=== PATIENT | male | born 1960 | race Caucasian/White ===

== ENCOUNTER 2023-05-17 22:23 | Emergency (ER) | payer OTHER, SELFPAY ==
[2023-05-17 22:24] VITALS: BP 180/93; PULSE 83; RESP 20; TEMP 37; O2SAT 96; BMI 28.8
[2023-05-17 22:42] LABS: Microscopic, Urine URINE MICROSCOPIC (MICROSCOPIC)
[2023-05-17 22:45] LABS: Appearance,Urine CLOUDY (Clear); Blood, Urine 3+ (Negative); Color,Urine RED (Yellow); Glucose,Urine (UA) 3+ (Negative); Ketones,Urine 1+ (Negative); Leukocyte Esterase,Urine TRACE (Negative); Nitrate,Urine POSITIVE (Negative); Protein,Urine 3+ (Negative); Specific Gravity, Urine 1.025 (1.005-1.030)
[2023-05-17 22:48] LABS: Bilirubin,Urine 2+ (Negative)
[2023-05-17 22:52] LABS: Basophils # 0.1 K/mm3 (0-0.2); Basophils % 0.5 % (0.1-2.0); Eosinophils # 0.5 K/mm3 (0.0-0.4); Eosinophils % 4.1 % (0.1-12.0); Hematocrit 40.2 % (42.0-52.0); Hemoglobin 13.4 g/dL (14.1-18.0); Lymphocytes % 17.7 % (10-50); Mean Corpuscular HGB Conc 33.3 g/dL (31.8-35.4); Mean Corpuscular Hemoglobin 31.6 pg (27.0-31.2); Mean Platelet Volume 8.1 fl (7.4-10.4); Monocytes # 0.7 K/mm3 (0.1-1.0); Neutrophils # 7.9 K/mm3 (1.8-7.8); Neutrophils % 71.7 % (37.0-80.0); Platelet Count 217 K/mm3 (142-424); Red Blood Count 4.23 M/mm3 (4.60-6.20); Red Cell Distribution Width 12.9 % (11.5-17.5)
--- NOTE | 2023-05-17 22:52 | CT_ITS ---
PROCEDURE INFORMATION: Exam: CT Abdomen And Pelvis With Contrast Exam date and time: 05/17/2023 11:29 PM Age: 62 years old Clinical indication: Abdominal pain; Additional info: Recent turbt, low abd pain TECHNIQUE: Imaging protocol: Computed tomography of the abdomen and pelvis with contrast. Radiation optimization: All CT scans at this facility use at least one of these dose optimization techniques: automated exposure control; mA and/or kV adjustment per patient size (includes targeted exams where dose is matched to clinical indication); or iterative reconstruction. Contrast material: ISOVUE; Contrast volume: 75 ml; Contrast route: IV; REPORTING DATA: Count of CT and Cardiac NM exams in prior 12 months: This patient has received 0 known CTs and 0 known cardiac nuclear medicine studies in the 12 months prior to the current study. COMPARISON: No relevant prior studies available. FINDINGS: Heart: Lipomatous hypertrophy of the interatrial septum. Liver: Normal. No mass. Gallbladder and bile ducts: Normal. No calcified stones. No ductal dilation. Pancreas: Fatty infiltrative changes of the pancreas. Spleen: Punctate splenic calcifications. Adrenal glands: Normal. No mass. Kidneys and ureters: Double-J left ureteral stent with the proximal aspect located within the left kidney upper pole in the distal aspect terminating within the urinary bladder. No identifiable stones. Mild left pelviectasis. Hbgd-bo-cjwpteql left periureteral and peripelvic inflammatory fat stranding. Stomach and bowel: Moderate to severe colonic diverticulosis without evidence of acute diverticulitis. Appendix: No evidence of appendicitis. Intraperitoneal space: Unremarkable. No free air. No significant fluid collection. Vasculature: Unremarkable. No abdominal aortic aneurysm. Lymph nodes: Unremarkable. No enlarged lymph nodes. Urinary bladder: Decompressed urinary bladder with a Quinones catheter in appropriate position. Moderate diffuse urinary bladder wall thickening. Reproductive: Unremarkable as visualized. Bones/joints: No acute osseous findings. Degenerative changes of the spine and hips. Soft tissues: Bilateral fat containing inguinal hernias. IMPRESSION: Double-J left ureteral stent and Quinones catheter in place. Moderate circumferential urinary bladder wall thickening and [id number] left periureteral/peripelvic inflammatory fat stranding, findings which may represent urinary tract infection. Mild left pelviectasis, query ureteral stent dysfunction.
[2023-05-17 22:57] LABS: Chloride 98 mmol/L (98-107)
[2023-05-17 22:58] LABS: Potassium 4.5 mmoL/L (3.5-5.1); Sodium 132 mmol/L (136-145)
[2023-05-17 23:00] LABS: Alanine Aminotransferase 30 U/L (12-78); Alkaline Phosphatase 87 U/L (38-126); Anion Gap 13.5 mEq/L (5-15); Aspartate Amino Transferase 28 U/L (17-59); Bilirubin,Total 0.4 mg/dl (0.2-1.3); Blood Urea Nitrogen 17 mg/dl (9-20); Carbon Dioxide 25 mmol/L (22.0-30.0); Creatinine Clearance Estimated 100 mL/min (50-200); Estimated Glomerular Filt Rate 85 ml/min (>60); GFR (African American) 103 ML/MIN (>60)
[2023-05-17 23:01] LABS: Albumin Level 3.9 g/dl (3.5-5.0); Albumin/Globulin Ratio 1.3 (1.1-1.8); Calcium 9.6 mg/dl (8.4-10.2); Glucose 329 mg/dl (74-100); Lipase 95 U/L (23-300); Total Protein,Serum 6.9 g/dl (6.3-8.2)
[2023-05-17 23:02] LABS: Lactic Acid 1.3 mmol/L (0.7-2.1)
--- NOTE | 2023-05-17 23:13 | [facility].EDGENADL ---
Discharge Plan Disposition Patient Disposition: Home, Self-Care Condition: Good Referrals Follow up/Referrals: Provider,MD Manuel [Primary Care Provider] - See instructions Activity Restrictions/Add. Instructions Additional Instructions/Restrictions: You were evaluated in the emergency department today for abdominal pain. We did not identify signs of infection from your recent surgery. We did identify pelviectasis of the kidney which does not require acute intervention at this time, however you do need to mention this at your urology follow-up. Go to your scheduled appointment, do not miss it. Also make a follow-up appointment with your primary care physician for Friday or Friday for reevaluation. Continue taking all home medications as previously prescribed. Return to the emergency department with other new or worsening symptoms. Clinical Impressions Clinical Impression: Bladder spasm Instructions Patient Instructions: DI for Acute Abdominal Pain Discharge ED Provider: Ernie Schuler General Adult HPI <Bharat Guy MD - Last Filed: 05/17/23 23:17> General Chief complaint: Abdominal Pain Stated complaint: abd pain Time Seen by Provider: 05/17/23 22:42 Mode of Arrival: Ambulatory Source of Information: Patient Limitations: No Limitations Description of Symptoms (Recalled from ER Triage Doc. by RN): Patient reports had TURP procedure on 05/15/23 started cramping this evening located in lower left quad. No fever or vomiting. Patient has not had a BM since yesterday. History of Present Illness HPI narrative: Patient is a 62-year-old male with past medical history of bladder tumor status post TURBT on with indwelling Quinones who presents emergency department for evaluation of lower abdominal pain. Onset was acute, severe which has since lessened to moderate, occurring earlier this evening. Symptoms are refractory to his phenazopyridine at home. Denies chest pain, other acute complaints at this time. Related Data Allergies Allergy/AdvReac Type Severity Reaction Status Date / Time [id number] Reductase Allergy Verified 05/17/23 22:42 Inhibitor PFSH <Bharat Guy MD - Last Filed: 05/17/23 23:17> PFS Disclaimer: The information contained in this section may have been updated after the patient was seen, as this information can be updated by other users. Social History (Updated 05/17/23 @ 23:17 by Bharat Guy MD) Smoking Status: Never smoker alcohol intake: never current occupational status: other Travel in the last 8 weeks: None <Bharat Guy MD - Last Filed: 05/17/23 23:17> ROS Obtained: Yes Systems reviewed as appropriate & no additional complaints except as documented Physical Exam <Bharat Guy MD - Last Filed: 05/17/23 23:17> General General appearance: alert and in no apparent distress Head Head exam: atraumatic and normocephalic Eye Eye exam: Present PERRL and EOMI ENT ENT exam: Present mucous membranes moist Neck Neck exam: Present normal inspection Chest Chest inspection: Present normal inspection and symmetric chest wall rise Respiratory Respiratory exam: Present normal lung sounds bilaterally; Absent respiratory distress Cardiovascular Cardiovascular exam: Present regular rate and normal rhythm Abdominal Exam Abdominal exam: Present soft and tenderness (Mild, suprapubic) Extremities Exam Extremities exam: Present normal inspection Neurological Exam Neurological exam: Present alert Psychiatric Psychiatric exam: Present normal affect Skin Skin exam: Present warm and dry Medical Decision Making <Bharat Guy MD - Last Filed: 05/17/23 23:17> Dipesh Inquiry Pt receiving controlled substance: No Vital Signs: 05/17/23 22:24 05/17/23 23:33 05/18/23 00:00 Temperature 98.6 F Temperature Source Oral Pulse Rate 88 Pulse Rate [Left] 83 Respiratory Rate 20 Blood Pressure 146/83 H 135/76 Blood Pressure [Right
--- NOTE | 2023-05-17 23:15 | PC.NURSE ---
Rounded on pt. No needs voiced at this time. Call light within reach.
[2023-05-17 23:18] LABS: Bacteria,Urine Trace /lpf; RBC,Urine TNTC #/hpf (0-3); Squamous Epithelial Cell,Urine Occasional #/hpf (0-5); WBC,Urine Occasional #/hpf (0-3)
[2023-05-17 23:33] VITALS: BP 146/83; PULSE 88; O2SAT 92
[2023-05-18] VITALS: BP 135/76; O2SAT 94
[2023-05-18 01:22] VITALS: BP 124/78; PULSE 81; RESP 16; TEMP 36.8; O2SAT 95
== END 2023-05-18 01:24 | disposition home or self-care (01) ==
PROVIDERS: Emergency Medicine; Emergency Provider Emergency Medicine
DX: N99.89 Other postprocedural complications and disorders of genitourinary system (principal); N32.89 Other specified disorders of bladder; R10.30 Lower abdominal pain, unspecified; Y83.6 Removal of other organ (partial) (total) as the cause of abnormal reaction of the patient, or of later complication, without mention of misadventure at the time of the procedure
CPT/HCPCS: 74177; 80053; 81001; 83605; 83690; 85025; 96374; 96375; 99285; J2405; Q9967

== ENCOUNTER 2024-11-01 12:55 | Emergency (ER) | payer OTHER, SELFPAY ==
[2024-11-01] VITALS (10 sets, daily range): BP systolic 134–167; BP diastolic 70–94; PULSE 80–123; RESP 13–22; TEMP 36.7–37.3; O2SAT 94–98; BMI 26.3
--- NOTE | 2024-11-01 12:53 | ECG_ITS ---
APPROVED REPORT Exam: Resting ECG HR:107 bpm ECG Measurements Heart Rate 107 AXES QRSd 87 QRS 60 QT 300 T 73 QTc 363 Conclusion ATRIAL FIBRILLATION WITH RAPID VENTRICULAR RESPONSE POSSIBLE RIGHT VENTRICULAR CONDUCTION DELAY [RSR (QR) IN V1/V2] ABNORMAL RHYTHM ECG UNCONFIRMED REPORT Electronically signed by : HERNAN ADEN, 11/02/2024 06:49:13
--- NOTE | 2024-11-01 13:03 | XR_ITS ---
FINAL REPORT TECHNIQUE: Chest PA & Lateral CLINICAL HISTORY: Chest pain COMPARISON: None FINDINGS: 2 views of the chest were performed. The heart size is normal. The mediastinum is within normal limits. There are some ill-defined opacities in both lungs, most evident in the left upper lobe, which may be related to mild multifocal pneumonia. There are no pleural effusions. There is no pneumothorax. The bony thorax appears intact. IMPRESSION: Multifocal pneumonia. Recommend follow-up radiographs. Reviewed, Interpreted and Dictated by Deandre Taylor MD Transcribed by Xuan Hearn Authenticated and [facility]
--- NOTE | 2024-11-01 13:03 | [facility]H.EDCP ---
Discharge Plan Disposition Patient Disposition: Home, Self-Care Condition: Good Prescriptions Prescriptions: New amoxicillin-pot clavulanate 875-125 mg tablet 1 tab PO BID Qty: 20 0RF azithromycin 250 mg tablet 250 mg PO DAILY 6 Days Qty: 6 0RF Rx Instructions: start on day 2 of therapy No Action glipizide 10 mg Tablet 10 mg PO DAILY metformin 500 mg Tablet 500 mg PO BID rosuvastatin 5 mg Tablet 5 mg PO DAILY polyethylene glycol 3350 [Miralax] 17 gram Powder In Packet 17 g PO NEEDED PRN (Reason: Constipation) nifedipine 90 mg Tablet Extended Release 90 mg PO DAILY acetaminophen [Tylenol] 325 mg Tablet 325 mg PO NEEDED PRN (Reason: Pain) sennosides 8.6 mg Tablet 8.6 mg PO BID Referrals Follow up/Referrals: Provider,Referral, MD [Primary Care Provider] - See instructions Activity Restrictions/Add. Instructions Additional Instructions/Restrictions: Please follow-up with your oncology team at the [facility] regarding your visit today. I believe they are aware of the known masses in your chest however they may want the images. I have called in a prescription as we discussed to cover for possible community-acquired pneumonia. Please check the patient portal for the results of your respiratory panel however as that is more likely a viral process. If you have continued or worsening symptoms follow-up with your PCP or return to the ER as needed. Clinical Impressions Clinical Impression: Lung mass Chest pain Qualifiers: Chest pain type: unspecified Qualified Code(s): R07.9 - Chest pain, unspecified Community acquired pneumonia Qualifiers: Laterality: unspecified laterality Qualified Code(s): J18.9 - Pneumonia, unspecified organism Print Language Print Language: Uzbek Discharge ED Provider: Yang Thompson HPI <ADITYA Adkins - Last Filed: 11/01/24 22:36> General Chief Complaint: Chest Pain Stated Complaint: CP Time Seen by Provider: 11/01/24 13:03 History of Present Illness HPI narrative: Patient presents for evaluation of left-sided chest pain. Patient states that when he woke up this morning he began having left-sided chest pain. It has been continuous with waxing and waning intensity but never present. He denies any shortness of breath fever chills hemoptysis hematochezia melena nausea vomit diarrhea. Patient does have known bladder cancer and has a urostomy on the right side as well as recently undergoing chemotherapy for the first time around the last week of September. [facility] and all of his care is normally given at the [facility]. Related Data Home Medications ?Medication ?Instructions ?Recorded ?Confirmed acetaminophen 325 mg tablet 325 mg PO NEEDED PRN Pain 11/01/24 11/01/24 (Tylenol) glipizide 10 mg tablet 10 mg PO DAILY 11/01/24 11/01/24 metformin 500 mg tablet 500 mg PO BID 11/01/24 11/01/24 nifedipine 90 mg tablet,extended 90 mg PO DAILY 11/01/24 11/01/24 release polyethylene glycol 3350 17 gram 17 g PO NEEDED PRN Constipation 11/01/24 11/01/24 oral powder packet (Miralax) rosuvastatin 5 mg tablet 5 mg PO DAILY 11/01/24 11/01/24 sennosides 8.6 mg tablet 8.6 mg PO BID 11/01/24 11/01/24 Previous Rx's ?Medication ?Instructions ?Recorded amoxicillin 875 mg-potassium 1 tab PO BID #20 tabs 11/01/24 clavulanate 125 mg tablet azithromycin 250 mg tablet 250 mg PO DAILY 6 days #6 tabs 11/01/24 Allergies Allergy/AdvReac Type Severity Reaction Status Date / Time [id number]-[id number] Reductase Allergy Anaphylaxis Verified 11/01/24 13:07 Inhibitor [facility] <ADITYA Adkins - Last Filed: 11/01/24 22:36> [facility] Disclaimer: The information contained in this section may have been updated after the patient was seen, as this information can be updated by other users. Medical History (Updated 11/01/24 @ 16:40 by ADITYA Adkins) Breast cancer Social History (Updated 11/01/24 @ 13:06 by Carol Ann Tamez RN) Smoking Status: Never smoker alcohol intake: never current occupational status: other Travel in the last 8 weeks: None Have you lived/traveled outside US in past 30 days?: No Contact w/someone who lives/traveled outside US past 30 days?: No Exposure to someone with infectious disease in past 14 days?: No Do you have a fever (greater than 100.4 F or 38 C)?: No Have you tested positive for COVID-19: No Exposed to someone with COVID-19 in past 14 days?: No Do you have a sore throat?: No Do you have a cough?: No Do you have any weakness?: No Do you have any diarrhea?: No Are you experiencing any unusual bleeding?: No Do you have any muscle aches/pain?: No Do you have any abdominal pain?: No Are you experiencing loss of taste or smell?: No <ADITYA Adkins - Last Filed: 11/01/24 22:36> ROS Obtained: Yes Systems reviewed as appropriate & no additional complaints except as documented Physical Exam <ADITYA Adkins - Last Filed: 11/01/24 22:36> General General appearance: alert and in no apparent distress Respiratory Respiratory exam: Present normal lung sounds bilaterally Cardiovascular Cardiovascular exam: Present tachycardia Neurological Exam Neurological exam: Present alert and oriented X3 HEART Score <ADITYA Adkins - Last Filed: 11/01/24 22:36> HEART Score HEART Score assessment performed?: Yes History (anamnesis): Slightly suspicious ECG: Non-specific disturbance Age: >65 years Risk factors: 3 or more risk factors Troponin: </= normal limit HEART Score: 5 <Yang Thompson MD - Last Filed: 11/03/24 15:13> HEART Score HEART Score: 5 Critical Care <ADITYA Adkins - Last Filed: 11/01/24 22:36> Critical Care Time Critical Care Time: No Medical Decision Making <ADITYA Adkins - Last Filed: 11/01/24 22:36> Medical Records Medical records reviewed: Yes I reviewed the patient's medical records. Dipesh Inquiry Pt receiving controlled substance: No Vital Signs Vital Signs: 11/01/24 12:55 11/01/24 13:01 11/01/24 13:30 Temperature 99.2 F Temperature Source Oral Pulse Rate 94 H 95 H Pulse Rate [Right] 123 H Respiratory Rate 18 16 16 Blood Pressure 161/87 H 159/79 H Blood Pressure [Right Arm] 167/82 H Blood Pressure Mean [Right Arm] 110 Blood Pressure Source Blood Pressure Source [Right Arm] Automatic Cuff Blood Pressure Position 02 Sat by Pulse Oximetry 98 95 96 Oxygen Delivery Method Room Air Room Air Room Air 11/01/24 14:01 11/01/24 14:30 11/01/24 15:01 Temperature Temperature Source Pulse Rate 96 H 88 87 Pulse Rate [Right] Respiratory Rate 22 13 16 Blood Pressure 145/78 H 135/86 157/86 H Blood Pressure [Right Arm] Blood Pressure Mean [Right Arm] Blood Pressure Source Blood Pressure Source [Right Arm] Blood Pressure Position 02 Sat by Pulse Oximetry 94 L 95 97 Oxygen Delivery Method Room Air Room Air Room Air 11/01/24 15:30 11/01/24 16:00 11/01/24 16:30 Temperature Temperature Source Pulse Rate 85 80 95 H Pulse Rate [Right] Respiratory Rate 18 13 21 Blood Pressure 153/94 H 134/70 151/86 H Blood Pressure [Right Arm] Blood Pressure Mean [Right Arm] Blood Pressure Source Blood Pressure Source [Right Arm] Blood Pressure Position 02 Sat by Pulse Oximetry 97 94 L 96 Oxygen Delivery Method Room Air Room Air Room Air 11/01/24 17:21 Temperature 98.1 F Temperature Source Oral Pulse Rate 93 H Pulse Rate [Right] Respiratory Rate 17 Blood Pressure 145/77 H Blood Pressure [Right Arm] Blood Pressure Mean [Right Arm] Blood Pressure Source Automatic Cuff Blood Pressure Source [Right Arm] Blood Pressure Position Sitting 02 Sat by Pulse Oximetry Oxygen Delivery Method Room Air Lab Data Lab results reviewed: Yes I reviewed the patient's lab results. Labs: Lab Results 11/01/24 12:59: WBC 12.0 H, RBC 3.50 L, Hgb 9.9 L, Hct 30.8 L, MCV 88.0, MCH 28.3, MCHC 32.1, RDW 14.3, Plt Count 408, MPV 9.5, Neut % (Auto) 82.9 H, Lymph % (Auto) 7.5 L, [place] % (Auto) 8.6, Eos % (Auto) 0.2, Baso % (Auto) 0.3, Neut # (Auto) 9.9 H, Lymph # (Auto) 0.9, [place] # (Auto) 1.0, Eos # (Auto) 0.0, Baso # (Auto) 0.0, PT 10.2, INR 0.92, Sodium 133 L, Potassium 4.5, Chloride 96 L, Carbon Dioxide 26, Anion Gap 15.5 H, BUN 20, Creatinine 1.00, Estimated Creat Clear 89, Estimated GFR 75, Est GFR ( Amer) 91, Glucose 151 H, Calcium 9.8, Magnesium 1.7, Total Bilirubin 0.4, AST 30, ALT 25, Alkaline Phosphatase 153 H, Troponin I 0.02, NT-Pro-B Natriuret Pep 986 H, Total Protein 7.7, Albumin 4.1, Globulin 3.6 H, Albumin/Globulin Ratio 1.1, Lipase 28, Procalcitonin 0.389, SARS-CoV-2 (PCR) Not detected, Influenza Type A (PCR) Not detected, Influenza Type B (PCR) Not detected, RSV (PCR) Not detected, Rhinovirus (PCR) Not detected 11/01/24 13:05: VBG pH 7.36, VBG pCO2 41.2, VBG pO2 40.1 H, VBG HCO3 22.8 L, VBG Total CO2 24.0, VBG O2 Saturation 72.9 H, VBG Base Excess -2.7 L, VBG Lactic Acid 1.3 11/01/24 13:39: Urine Color Yellow, Urine Appearance Clear, Urine pH 6.0, Ur Specific [place] 1.020, Urine Protein 2+ A, Urine Glucose (UA) Negative, Urine Ketones Trace, Urine Blood 2+ A, Urine Nitrate Positive A, Urine Bilirubin Negative, Urine Urobilinogen 0.2, Ur Leukocyte Esterase 2+ A, Urine RBC 3-5, Urine WBC Tntc, Ur Squamous Epith Cells Occasional, Urine Bacteria 3+ 11/01/24 16:18: Troponin I 0.02 11/01/24 12:59 11/01/24 12:59 Response Orders (Tests/Meds): ED MEDICATIONS Discontinued Medications Generic Name Dose Route Start Last Admin Trade Name Ravi PRN Reason Stop Dose Admin Acetaminophen 1,000 mg 11/01/24 13:03 11/01/24 13:21 Acetaminophen 1,000mg/100ml Vial IV 11/01/24 13:04 1,000 mg ONCE ONE Administration Amoxicillin/Clavulanate Potassium 1 each 11/01/24 14:43 11/01/24 16:30 Amoxicillin/Clavulanate Potassium 875/125mg Tablet PO 11/01/24 14:44 1 each ONCE ONE Administration Azithromycin 500 mg 11/01/24 14:43 11/01/24 16:30 Azithromycin 250mg Tablet PO 11/01/24 14:44 500 mg ONCE ONE Administration Ketorolac Tromethamine 15 mg 11/01/24 13:03 11/01/24 13:20 Ketorolac 30mg/Ml Vial IV 11/01/24 13:04 15 mg ONCE ONE Administration ORDERS Category Date Time Status CT chest wo con Stat Cat Scan 11/01/24 14:47 Completed Chest XR 2 view (NOT portable) [XR chest 2V] Stat Exams 11/01/24 13:03 Completed BNP [NT Pro Brain Natriuretic Pep.] Stat Lab 11/01/24 12:59 Completed CBC w/Auto Diff [Complete Blood Count Auto Diff] Stat Lab 11/01/24 12:59 Completed CMP [Comprehensive Metabolic Panel] Stat Lab 11/01/24 12:59 Completed INR [Prothrombin Time INR] Stat Lab 11/01/24 12:59 Completed Lipase Stat Lab 11/01/24 12:59 Completed Magnesium Stat Lab 11/01/24 12:59 Completed Mini Respiratory Panel Stat Lab 11/01/24 12:59 Completed Procalcitonin Stat Lab 11/01/24 12:59 Completed Trop I [Troponin I] Stat Lab 11/01/24 12:59 Completed Troponin I Q3H Lab 11/01/24 16:18 Completed UA [Urinalysis and Microscopic] Stat Lab 11/01/24 13:39 Completed Urine Culture Stat Micro 11/01/24 13:39 Completed VBG [Venous Blood Gas] Stat RT 11/01/24 13:05 Completed MDM Narrative Medical Decision Narrative: In summary patient is a 64-year-old male who presents to the emergency department for evaluation of chest pain. Patient is initially normotensive at 167/82 but tachycardic at 123 with sinus tachycardia on the bedside monitor breathing 18 times a minute satting at 98% on room air upon arrival, afebrile at 99.2. Physical exam reveals normal breath sounds normal heart sounds no reproducible pain on palpation.. Differential diagnosis includes ACS versus pneumonia versus pleural effusion versus metastatic disease versus viral infection versus pancreatitis etc. Initial workup will be conducted with hematologic labs plain film chest x-ray twelve-lead EKG respiratory panel. Initial interventions include Toradol and Tylenol for now. Initial workup reviewed by me shows that his white count is 12 with hemoglobin hematocrit of 9 and 30.8 respectively with an absolute neutrophil count of 9.96 VBG shows a preserved pH of 7.36 and a VBG lactic acid 1.3. His NT proBNP is 986. The remainder of his hematologic labs are nonactionable and unremarkable including 2 negative troponins. His respiratory panel is negative for COVID and flu RSV and rhinovirus. Urinalysis insistent with possible infection however patient has urostomy tube and has no constitutional symptoms of pyelonephritis currently. My informal plain film chest x-ray shows several areas of what appear to be solid nodules but no discrete infiltrates. Thus I have ordered CT noncontrast to further characterize. My informal interpretation of that imaging shows that those are solid masses worrisome for malignancy given his known history of bladder cancer. Upon repeat evaluation patient actually felt better and had resolution of his chest pain since arrival. Given this patient is appropriate for discharge with prescription for community acquired pneumonia coverage with Augmentin and azithromycin which hopefully will least initially tamper any potential urinary tract infection until urine culture is completed. [facility] and let them know the findings of today. The nodules are apparently no but I have no comparison here thus will be important to ascertain any differences. Patient verbalized understanding and agreement. <Yang Thompson MD - Last Filed: 11/03/24 15:13> Vital Signs Vital Signs: 11/01/24 12:55 11/01/24 13:01 11/01/24 13:30 Temperature 99.2 F Temperature Source Oral Pulse Rate 94 H 95 H Pulse Rate [Right] 123 H Respiratory Rate 18 16 16 Blood Pressure 161/87 H 159/79 H Blood Pressure [Right Arm] 167/82 H Blood Pressure Mean [Right Arm] 110 Blood Pressure Source Blood Pressure Source [Right Arm] Automatic Cuff Blood Pressure Position 02 Sat by Pulse Oximetry 98 95 96 Oxygen Delivery Method Room Air Room Air Room Air 11/01/24 14:01 11/01/24 14:30 11/01/24 15:01 Temperature Temperature Source Pulse Rate 96 H 88 87 Pulse Rate [Right] Respiratory Rate 22 13 16 Blood Pressure 145/78 H 135/86 157/86 H Blood Pressure [Right Arm] Blood Pressure Mean [Right Arm] Blood Pressure Source Blood Pressure Source [Right Arm] Blood Pressure Position 02 Sat by Pulse Oximetry 94 L 95 97 Oxygen Delivery Method Room Air Room Air Room Air 11/01/24 15:30 11/01/24 16:00 11/01/24 16:30 Temperature Temperature Source Pulse Rate 85 80 95 H Pulse Rate [Right] Respiratory Rate 18 13 21 Blood Pressure 153/94 H 134/70 151/86 H Blood Pressure [Right Arm] Blood Pressure Mean [Right Arm] Blood Pressure Source Blood Pressure Source [Right Arm] Blood Pressure Position 02 Sat by Pulse Oximetry 97 94 L 96 Oxygen Delivery Method Room Air Room Air Room Air 11/01/24 17:21 Temperature 98.1 F Temperature Source Oral Pulse Rate 93 H Pulse Rate [Right] Respiratory Rate 17 Blood Pressure 145/77 H Blood Pressure [Right Arm] Blood Pressure Mean [Right Arm] Blood Pressure Source Automatic Cuff Blood Pressure Source [Right Arm] Blood Pressure Position Sitting 02 Sat by Pulse Oximetry Oxygen Delivery Method Room Air Lab Data Labs: Lab Results 11/01/24 12:59: WBC 12.0 H, RBC 3.50 L, Hgb 9.9 L, Hct 30.8 L, MCV 88.0, MCH 28.3, MCHC 32.1, RDW 14.3, Plt Count 408, MPV 9.5, Neut % (Auto) 82.9 H, Lymph % (Auto) 7.5 L, [place] % (Auto) 8.6, Eos % (Auto) 0.2, Baso % (Auto) 0.3, Neut # (Auto) 9.9 H, Lymph # (Auto) 0.9, [place] # (Auto) 1.0, Eos # (Auto) 0.0, Baso # (Auto) 0.0, PT 10.2, INR 0.92, Sodium 133 L, Potassium 4.5, Chloride 96 L, Carbon Dioxide 26, Anion Gap 15.5 H, BUN 20, Creatinine 1.00, Estimated Creat Clear 89, Estimated GFR 75, Est GFR ( Amer) 91, Glucose 151 H, Calcium 9.8, Magnesium 1.7, Total Bilirubin 0.4, AST 30, ALT 25, Alkaline Phosphatase 153 H, Troponin I 0.02, NT-Pro-B Natriuret Pep 986 H, Total Protein 7.7, Albumin 4.1, Globulin 3.6 H, Albumin/Globulin Ratio 1.1, Lipase 28, Procalcitonin 0.389, SARS-CoV-2 (PCR) Not detected, Influenza Type A (PCR) Not detected, Influenza Type B (PCR) Not detected, RSV (PCR) Not detected, Rhinovirus (PCR) Not detected 11/01/24 13:05: VBG pH 7.36, VBG pCO2 41.2, VBG pO2 40.1 H, VBG HCO3 22.8 L, VBG Total CO2 24.0, VBG O2 Saturation 72.9 H, VBG Base Excess -2.7 L, VBG Lactic Acid 1.3 11/01/24 13:39: Urine Color Yellow, Urine Appearance Clear, Urine pH 6.0, Ur Specific [place] 1.020, Urine Protein 2+ A, Urine Glucose (UA) Negative, Urine Ketones Trace, Urine Blood 2+ A, Urine Nitrate Positive A, Urine Bilirubin Negative, Urine Urobilinogen 0.2, Ur Leukocyte Esterase 2+ A, Urine RBC 3-5, Urine WBC Tntc, Ur Squamous Epith Cells Occasional, Urine Bacteria 3+ 11/01/24 16:18: Troponin I 0.02 Response Orders (Tests/Meds): ED MEDICATIONS Discontinued Medications Generic Name Dose Route Start Last Admin Trade Name Freq PRN Reason Stop Dose Admin Acetaminophen 1,000 mg 11/01/24 13:03 11/01/24 13:21 Acetaminophen 1,000mg/100ml Vial IV 11/01/24 13:04 1,000 mg ONCE ONE Administration Amoxicillin/Clavulanate Potassium 1 each 11/01/24 14:43 11/01/24 16:30 Amoxicillin/Clavulanate Potassium 875/125mg Tablet PO 11/01/24 14:44 1 each ONCE ONE Administration Azithromycin 500 mg 11/01/24 14:43 11/01/24 16:30 Azithromycin 250mg Tablet PO 11/01/24 14:44 500 mg ONCE ONE Administration Ketorolac Tromethamine 15 mg 11/01/24 13:03 11/01/24 13:20 Ketorolac 30mg/Ml Vial IV 11/01/24 13:04 15 mg ONCE ONE Administration ORDERS Category Date Time Status CT chest wo con Stat Cat Scan 11/01/24 14:47 Completed Chest XR 2 view (NOT portable) [XR chest 2V] Stat Exams 11/01/24 13:03 Completed BNP [NT Pro Brain Natriuretic Pep.] Stat Lab 11/01/24 12:59 Completed CBC w/Auto Diff [Complete Blood Count Auto Diff] Stat Lab 11/01/24 12:59 Completed CMP [Comprehensive Metabolic Panel] Stat Lab 11/01/24 12:59 Completed INR [Prothrombin Time INR] Stat Lab 11/01/24 12:59 Completed Lipase Stat Lab 11/01/24 12:59 Completed Magnesium Stat Lab 11/01/24 12:59 Completed Mini Respiratory Panel Stat Lab 11/01/24 12:59 Completed Procalcitonin Stat Lab 11/01/24 12:59 Completed Trop I [Troponin I] Stat Lab 11/01/24 12:59 Completed Troponin I Q3H Lab 11/01/24 16:18 Completed UA [Urinalysis and Microscopic] Stat Lab 11/01/24 13:39 Completed Urine Culture Stat Micro 11/01/24 13:39 Completed VBG [Venous Blood Gas] Stat RT 11/01/24 13:05 Completed ECG Data Tracing #1: Attestation: I reviewed this ECG and interpreted as documented below: (Sinus tachycardia intermittent PACs. KS interval 120 ms, QRS 87, QTc 363 with normal axis. No acute ischemic change) MDM Narrative Medical Decision Narrative: In summary patient is a 64-year-old male who presents to the emergency department for evaluation of chest pain. Patient is initially normotensive at 167/82 but tachycardic at 123 with sinus tachycardia on the bedside monitor breathing 18 times a minute satting at 98% on room air upon arrival, afebrile at 99.2. Physical exam reveals normal breath sounds normal heart sounds no reproducible pain on palpation.. Differential diagnosis includes ACS versus pneumonia versus pleural effusion versus metastatic disease versus viral infection versus pancreatitis etc. Initial workup will be conducted with hematologic labs plain film chest x-ray twelve-lead EKG respiratory panel. Initial interventions include Toradol and Tylenol for now. Initial workup reviewed by me shows that his white count is 12 with hemoglobin hematocrit of 9 and 30.8 respectively with an absolute neutrophil count of 9.96 VBG shows a preserved pH of 7.36 and a VBG lactic acid 1.3. His NT proBNP is 986. The remainder of his hematologic labs are nonactionable and unremarkable including 2 negative troponins. His respiratory panel is negative for COVID and flu RSV and rhinovirus. Urinalysis insistent with possible infection however patient has urostomy tube and has no constitutional symptoms of pyelonephritis currently. My informal plain film chest x-ray shows several areas of what appear to be solid nodules but no discrete infiltrates. Thus I have ordered CT noncontrast to further characterize. My informal interpretation of that imaging shows that those are solid masses worrisome for malignancy given his known history of bladder cancer. Upon repeat evaluation patient actually felt better and had resolution of his chest pain since arrival. Given this patient is appropriate for discharge with prescription for community acquired pneumonia coverage with Augmentin and azithromycin which hopefully will least initially tamper any potential urinary tract infection until urine culture is completed. [facility] and let them know the findings of today. The nodules are apparently no but I have no comparison here thus will be important to ascertain any differences. Patient verbalized understanding and agreement. I was consulted by the CINDY, and we discussed the complexity of the problems being addressed. I approved the treatment and management plan for this patient's care in the Emergency Department, thus performing a substantive portion of the medical decision making. Yang Thompson MD
[2024-11-01 13:10] LABS: Coronavirus 19, PCR Not Detected (NotDetected); Human Rhinovirus Not Detected (NotDetected); Influenza A, PCR Not Detected (NotDetected); Influenza B, PCR Not Detected (NotDetected); Respiratory Syncytial Virus Not Detected (NotDetected)
--- NOTE | 2024-11-01 13:10 | PC.NURSE ---
Pt is unable to provide a list of medications at this time. Attempting to locate list on phone
[2024-11-01 13:17] LABS: Basophils % 0.3 % (0.1-2.0); Eosinophils % 0.2 % (0.1-12.0); Hematocrit 30.8 % (42.0-52.0); Hemoglobin 9.9 g/dL (14.1-18.0); Lymphocytes # 0.9 K/mm3 (0.7-4.5); Lymphocytes % 7.5 % (10-50); Mean Corpuscular HGB Conc 32.1 g/dL (31.8-35.4); Mean Corpuscular Hemoglobin 28.3 pg (27.0-31.2); Mean Platelet Volume 9.5 fl (7.4-10.4); Monocytes % 8.6 % (1.7-9.3); Neutrophils # 9.9 K/mm3 (1.8-7.8); Neutrophils % 82.9 % (37.0-80.0); Platelet Count 408 K/mm3 (142-424); Red Cell Distribution Width 14.3 % (11.5-17.5)
[2024-11-01 13:19] LABS: Lactate Venous 1.3 mmol/L (0.4-2.0); VBG Base Excess -2.7 mmol/L (-2.4-2.3); VBG HCO3 22.8 mmol/L (23-30); VBG Oxygen Saturation 72.9 % (50-70); VBG PCO2 41.2 mmol/L (35-51); VBG PH 7.36 mmol/L (7.31-7.41); VBG PO2 40.1 mmol/L (28-40)
[2024-11-01] MEDS: KETOROLAC 30MG/ML VIAL 15 MG IV (13:20)
[2024-11-01] MEDS: ACETAMINOPHEN 1,000MG/100ML VIAL 1000 MG IV (13:21)
[2024-11-01 13:27] LABS: Alanine Aminotransferase 25 U/L (12-78); Albumin Level 4.1 g/dl (3.5-5.0); Albumin/Globulin Ratio 1.1 (1.1-1.8); Alkaline Phosphatase 153 U/L (38-126); Anion Gap 15.5 mEq/L (5-15); Aspartate Amino Transferase 30 U/L (17-59); Bilirubin,Total 0.4 mg/dl (0.2-1.3); Blood Urea Nitrogen 20 mg/dl (9-20); Calcium 9.8 mg/dl (8.4-10.2); Carbon Dioxide 26 mmol/L (22.0-30.0); Chloride 96 mmol/L (98-107); Creatinine Clearance Estimated 89 mL/min (50-200); Estimated Glomerular Filt Rate 75 ml/min (>60); GFR (African American) 91 ML/MIN (>60); Globulin 3.6 g/dL (1.3-3.2); Glucose 151 mg/dl (74-100); Magnesium 1.7 mg/dl (1.6-2.3); Potassium 4.5 mmoL/L (3.5-5.1); Sodium 133 mmol/L (136-145); Total Protein,Serum 7.7 g/dl (6.3-8.2)
[2024-11-01 13:33] LABS: INR 0.92 (0.9-1.1); Prothrombin Time 10.2 seconds (9.2-12.1)
[2024-11-01 13:37] LABS: NT Pro Brain Natriuretic Pep. 986 pg/mL (0-125)
[2024-11-01 13:39] LABS: Troponin I 0.02 ng/ml (0.00-0.034)
[2024-11-01 13:42] LABS: Microscopic, Urine URINE MICROSCOPIC (MICROSCOPIC)
[2024-11-01 13:44] LABS: Procalcitonin 0.389 ng/mL (0.0-2.0)
[2024-11-01 13:51] LABS: Appearance,Urine CLEAR (Clear); Bilirubin,Urine Negative (Negative); Blood, Urine 2+ (Negative); Color,Urine YELLOW (Yellow); Glucose,Urine (UA) Negative (Negative); Ketones,Urine TRACE (Negative); Leukocyte Esterase,Urine 2+ (Negative); Nitrate,Urine POSITIVE (Negative); Protein,Urine 2+ (Negative); Urobilinogen,Urine 0.2 EU/dl (0.2)
--- NOTE | 2024-11-01 14:01 | PC.NURSE ---
PT resting comfortably in bed at this time. Declines any needs at this time.
[2024-11-01 14:20] LABS: Lipase 28 U/L (23-300)
--- NOTE | 2024-11-01 14:47 | CT_ITS ---
FINAL REPORT TECHNIQUE: Axial images were obtained from the lung apex to the mid abdomen by computed tomography. Sagittal and coronal reformatted images were obtained. This study was performed with techniques to keep radiation doses as low as reasonably achievable, (ALARA). Individualized dose reduction techniques using automated exposure control or adjustment of mA and/or kV according to the patient's size were employed. CLINICAL HISTORY: Chest pain COMPARISON: None FINDINGS: No significant mediastinal mass or adenopathy is identified. No axillary mass or adenopathy is seen. There is lipomatous hypertrophy of the interatrial septum. On the lung window images, there are several pleural-based masses. There is a focus identified along the anterior margin of the left major fissure measuring 2.9 x 1.5 cm seen on image #29 of series 3. There is a small pleural-based focus in the periphery of the right lower lobe measuring 1.3 cm in diameter seen on image #50 of series 3. There is a pleural-based focus along the posterior margin of the right major fissure measuring 2.6 x 1.9 cm. There is a nodule in the right lower lobe measuring 1.6 cm in diameter seen on image #64 of series 3. There is no pericardial or pleural effusion. Limited images of the upper abdomen are unremarkable. IMPRESSION: Multiple masses as described that could be inflammatory or neoplastic. Priors are not available to determine chronicity. Recommend PET CT for further evaluation. Reviewed, Interpreted and Dictated by Deandre Taylor MD Transcribed by Xuan Hearn Authenticated and [facility]
[2024-11-01 15:01] LABS: Bacteria,Urine 3+ /lpf; Squamous Epithelial Cell,Urine Occasional #/hpf (0-5); WBC,Urine TNTC #/hpf (0-3)
--- NOTE | 2024-11-01 16:12 | PC.NURSE ---
report received from JACQUIE Potter. pt is resting at this time
[2024-11-01] MEDS: AZITHROMYCIN 250MG TABLET 500 MG PO (16:30)
[2024-11-01] MEDS: AMOXICILLIN/CLAVULANATE POTASSIUM 875/125MG TABLET 1 EACH PO (16:30)
--- NOTE | 2024-11-01 16:30 | PC.NURSE ---
PT MEDICATED PER EMAR, SANDWICH AND DRINK PROVIDED. UPDATED ON POC. CALL LIGHT WITHIN REACH. NO NEEDS AT THIS TIME
[2024-11-01 17:04] LABS: Troponin I 0.02 ng/ml (0.00-0.034)
--- NOTE | 2024-11-01 17:20 | PC.NURSE ---
pt resting in bed at this time. no complaints reported
== END 2024-11-01 17:26 | disposition home or self-care (01) ==
PROVIDERS: Physician Assistant; Emergency Provider Emergency Medicine
DX: J18.9 Pneumonia, unspecified organism (principal); R91.8 Other nonspecific abnormal finding of lung field; R07.9 Chest pain, unspecified
CPT/HCPCS: 71046; 71250; 80053; 81001; 82803; 83690; 83735; 83880; 84145; 84484; 85025; 85610; 87086; 87088; 87186; 87631; 93005; 96374; 96375; 99285; J0131; J1885

== ENCOUNTER 2025-02-05 14:20 | Emergency (ER) | payer OTHER, SELFPAY ==
[2025-02-05] VITALS (12 sets, daily range): BP systolic 132–164; BP diastolic 72–89; PULSE 89–105; RESP 16–18; TEMP 36.8–37; O2SAT 97–98; BMI 23.7
--- NOTE | 2025-02-05 14:35 | CT_ITS ---
PROCEDURE INFORMATION: Exam: CT Abdomen And Pelvis With Contrast Exam date and time: 02/05/2025 4:58 PM Age: 64 years old Clinical indication: Other: Displaced right nephrostomy tube TECHNIQUE: Imaging protocol: Computed tomography of the abdomen and pelvis with contrast. Radiation optimization: All CT scans at this facility use at least one of these dose optimization techniques: automated exposure control; mA and/or kV adjustment per patient size (includes targeted exams where dose is matched to clinical indication); or iterative reconstruction. Contrast material: ISOVUE; Contrast volume: 75 ml; Contrast route: IV; COMPARISON: CT ABDOMEN PELVIS W CON 05/17/2023 11:29 PM FINDINGS: Tubes, catheters and devices: None noted. Lungs: Lung bases appear clear. Heart: No significant coronary calcifications. No cardiomegaly. No significant pericardial effusion. Liver: Normal. No mass. Gallbladder and biliary ducts: Normal. No calcified stones. No ductal dilation. Pancreas: Normal. No ductal dilation. Spleen: Normal. No splenomegaly. Adrenal glands: Normal. No mass. Kidneys and ureters: Right nephrostomy tube appears in good position in the right renal pelvis. Perirenal inflammatory changes are noted. Bilateral hydroureter to the level of the bladder where there is a large mass involving the bladder and prostate at least 12.7 x 6.8 cm. Bilateral hydronephrosis and hydroureter. Stomach and bowel: Unremarkable. No obstruction. No mucosal thickening. Appendix: No evidence of appendicitis. Intraperitoneal space: Unremarkable. No free air. No significant fluid collection. Retroperitoneal space: No significant retroperitoneal inflammatory changes are noted. Vasculature: Unremarkable. No abdominal aortic aneurysm. Lymph nodes: Bulky right internal iliac adenopathy 6 x 4.5 cm. Bulky bilateral inguinal adenopathy. Urinary bladder: Unremarkable as visualized. Reproductive: Unremarkable as visualized. Bones/joints: Destructive mass left iliac crest. Destructive mass in the inferior pubic rami bilaterally. Axial osseous metastatic disease. No acute fracture. Soft tissues: Unremarkable. IMPRESSION: 1. Large mass involving the bladder and prostate with bilateral ureteral obstruction at the trigone. 2. Right nephrostomy catheter appears to be in good position radiographically. 3. Bulky right internal iliac adenopathy 6 x 4.5 cm. Bulky bilateral inguinal adenopathy. 4. Destructive mass left iliac crest. Destructive mass in the inferior pubic rami bilaterally. Axial osseous metastatic disease. COMMENTS: Consistent with the [employer]'s Incidental Findings Committee white paper (J Am Silvana Radiol 2018): Any incidental renal lesion less than 1 cm or classified as too small to characterize, or any incidental cystic renal lesion characterized as simple-appearing, is likely benign. No follow-up imaging is recommended for these lesions per consensus recommendations based on imaging criteria.
--- NOTE | 2025-02-05 15:32 | ED_ITS ---
Discharge Plan Disposition Patient Disposition: Home, Self-Care Chief Complaint: Recheck/Abnormal Lab/Rx Prescriptions Prescriptions: No Action glipizide 10 mg Tablet 10 mg PO DAILY metformin 500 mg Tablet 500 mg PO BID rosuvastatin 5 mg Tablet 5 mg PO DAILY polyethylene glycol 3350 [Miralax] 17 gram Powder In Packet 17 g PO NEEDED PRN (Reason: Constipation) nifedipine 90 mg Tablet Extended Release 90 mg PO DAILY acetaminophen [Tylenol] 325 mg Tablet 325 mg PO NEEDED PRN (Reason: Pain) sennosides 8.6 mg Tablet 8.6 mg PO BID amoxicillin-pot clavulanate 875-125 mg tablet 1 tab PO BID Qty: 20 0RF azithromycin 250 mg tablet 250 mg PO DAILY 6 Days Qty: 6 0RF Rx Instructions: start on day 2 of therapy Referrals Follow up/Referrals: Provider,ReferralMD [Primary Care Provider] - See instructions Activity Restrictions/Add. Instructions Additional Instructions/Restrictions: Call your family doctor to establish care for this visit to the emergency department and schedule follow-up within 48 hours to ensure improvement. If you have any worsening of your condition or any other concerning signs or symptoms, return to the emergency department or your primary care doctor for further evaluation. Specifically talk to your urologist about your urinalysis results today with blood, protein, leukocyte esterase, nitrates, bacteria, white blood cells and concern for catheter associated urinary tract infection. Ask them if they would like to start you on antibiotics, as I feel they are indicated at this time. Clinical Impressions Clinical Impression: Complication of nephrostomy Print Language Print Language: Urdu Discharge ED Provider: Yang Thompson General Adult HPI <Trina Stafford MD - Last Filed: 02/05/25 15:38> General Chief complaint: Recheck/Abnormal Lab/Rx Stated complaint: proxy not draining Time Seen by Provider: 02/05/25 14:25 Mode of Arrival: Ambulatory Source of Information: Patient Description of Symptoms (Recalled from ER Triage Doc. by RN): Pt reports nephrostomy tube is not draining per its normal. Pt reports he emptied last at 0700- had appropriate output at that time. Pt reports has flused his tubing twice, flushed normally but has not started draining like normal. Pt reports he does feel like he has a lot of pressure in his R kidney. Pt reports he has stage 4 bladder cancer. History of Present Illness HPI narrative: Lionel Augustine is a 64 y/o male presenting with nephrostomy complication. Patient reports history of bladder cancer resulting in right-sided nephrostomy tube. Patient woke up with urine in his nephrostomy bag and has emptied it twice this morning. Patient performs intermittent catheterization of his penis for the urine from his left kidney. Patient states he has had no further drainage into his nephrostomy bag since approximately 11 AM. He has tried to flush the tubing twice and notes that it flushed appropriately but no further drainage has occurred. Patient reports feeling increasing pressure in his right flank. He denies fevers or chills. He denies constipation. [facility] is seen at the [facility] and the nephrostomy tube was placed at . Related Data Home Medications ?Medication ?Instructions ?Recorded ?Confirmed acetaminophen 325 mg tablet 325 mg PO NEEDED PRN Pain 11/01/24 11/01/24 (Tylenol) glipizide 10 mg tablet 10 mg PO DAILY 11/01/24 02/05/25 metformin 500 mg tablet 500 mg PO BID 11/01/24 02/05/25 nifedipine 90 mg tablet,extended 90 mg PO DAILY 11/01/24 11/01/24 release polyethylene glycol 3350 17 gram 17 g PO NEEDED PRN Constipation 11/01/24 11/01/24 oral powder packet (Miralax) rosuvastatin 5 mg tablet 5 mg PO DAILY 11/01/24 02/05/25 sennosides 8.6 mg tablet 8.6 mg PO BID 11/01/24 11/01/24 Previous Rx's ?Medication ?Instructions ?Recorded amoxicillin 875 mg-potassium 1 tab PO BID #20 tabs 11/01/24 clavulanate 125 mg tablet azithromycin 250 mg tablet 250 mg PO DAILY 6 days #6 tabs 11/01/24 Allergies Allergy/AdvReac Type Severity Reaction Status Date / Time [id number] Reductase Allergy Anaphylaxis Verified 11/01/24 13:07 Inhibitor [facility] <Trina Stafford MD - Last Filed: 02/05/25 15:38> PFS Disclaimer: The information contained in this section may have been updated after the patient was seen, as this information can be updated by other users. Medical History Breast cancer Social History Smoking Status: Never smoker alcohol intake: never current occupational status: other Travel in the last 8 weeks?: None Have you lived/traveled outside [place] in past 30 days?: No Contact w/someone who lives/traveled outside US past 30 days?: No Exposure to someone with infectious disease in past 14 days?: No Do you have a fever (greater than 100.4 F or 38 C)?: No Have you tested positive for COVID-19?: No Exposed to someone with COVID-19 in past 14 days?: No Do you have a sore throat?: No Do you have a cough?: No Do you have any weakness?: No Do you have any diarrhea?: No Are you experiencing any unusual bleeding?: No Do you have any muscle aches/pain?: No Do you have any abdominal pain?: No Are you experiencing loss of taste or smell?: No <Trina Stafford MD - Last Filed: 02/05/25 15:38> ROS Obtained: Yes All systems reviewed & no additional complaints except as documented Physical Exam <Trina Stafford MD - Last Filed: 02/05/25 15:38> General General appearance: alert and in no apparent distress Eye Eye exam: Present normal appearance, PERRL and EOMI Chest Chest inspection: Present normal inspection and symmetric chest wall rise; Absent tenderness Respiratory Respiratory exam: Present normal lung sounds bilaterally; Absent respiratory distress Cardiovascular Cardiovascular exam: Present regular rate and normal rhythm; Absent JVD Abdominal Exam Abdominal exam: Present soft and normal bowel sounds; Absent distention, tenderness or guarding Comment: Nephrostomy and right flank without urine and appliance. Suture appears in place. No surrounding erythema or regions of fluctuance. Extremities Exam Extremities exam: Present normal inspection, full ROM, normal capillary refill and edema (RLE at edema baseline per pt from prior DVT); Absent calf tenderness Back Exam Back exam: Present normal inspection; Absent tenderness Neurological Exam Neurological exam: Present alert and oriented X3 Psychiatric Psychiatric exam: Present normal affect and normal mood Skin Skin exam: Present warm, dry, intact and normal color Medical Decision Making <Trina Stafford MD - Last Filed: 02/05/25 15:38> Medical Records Medical records reviewed: Yes I reviewed the patient's medical records. Screening: Per USPSTF and CDC recommendations, given the prevalence of disease in our region, it is our hospital?s policy to screen for HIV and viral Hepatitis for all patients aged 18 and over and those with ongoing risk factors. Dipesh Inquiry Pt receiving controlled substance: No Vital Signs: 02/05/25 14:30 02/05/25 14:38 02/05/25 15:32 Temperature 98.2 F Temperature Source Oral Pulse Rate 89 Pulse Rate [Right Radial] 102 H Respiratory Rate 18 Blood Pressure 147/84 H 137/80 Blood Pressure [Right Arm] 132/83 Blood Pressure Mean 98 Blood Pressure Mean [Right Arm] 99 Blood Pressure Source [Right Arm] Automatic Cuff Blood Pressure Position [Right Arm] Sitting 02 Sat by Pulse Oximetry 98 97 98 Oxygen Delivery Method Room Air Room Air 02/05/25 16:00 02/05/25 16:14 02/05/25 16:30 Temperature Temperature Source Pulse Rate 99 H 98 H 101 H Pulse Rate [Right Radial] Respiratory Rate Blood Pressure 153/82 H 152/76 H 159/82 H Blood Pressure [Right Arm] Blood Pressure Mean Blood Pressure Mean [Right Arm] Blood Pressure Source [Right Arm] Blood Pressure Position [Right Arm] 02 Sat by Pulse Oximetry 97 97 98 Oxygen Delivery Method Room Air Room Air Room Air 02/05/25 17:21 02/05/25 17:30 02/05/25 18:00 Temperature Temperature Source Pulse Rate 104 H 105 H 101 H Pulse Rate [Right Radial] Respiratory Rate Blood Pressure 163/88 H 164/89 H 163/85 H Blood Pressure [Right Arm] Blood Pressure Mean Blood Pressure Mean [Right Arm] Blood Pressure Source [Right Arm] Blood Pressure Position [Right Arm] 02 Sat by Pulse Oximetry 98 98 97 Oxygen Delivery Method Room Air Room Air Room Air Lab Data Lab results reviewed: Yes I reviewed the patient's lab results. Lab Results 02/05/25 15:14: Urine Color Yellow, Urine Appearance Clear, Urine pH 7.0, Ur Specific [place] 1.015, Urine Protein 3+ A, Urine Glucose (UA) Negative, Urine Ketones Negative, Urine Blood 2+ A, Urine Nitrate Positive A, Urine Bilirubin Negative, Urine Urobilinogen 0.2, Ur Leukocyte Esterase 2+ A, Urine RBC 3-5, Urine WBC 50-100, Ur Squamous Epith Cells Occasional, Urine Bacteria 3+ 02/05/25 15:30: WBC 5.3, RBC 3.37 L, Hgb 8.6 L, Hct 27.7 L, MCV 82.2, MCH 25.5 L , MCHC 31.0 L, RDW 17.6 H, Plt Count 142, MPV 9.7, Neut % (Auto) 88.0 H, Lymph % (Auto) 10.2, Isabella % (Auto) 0.4 L, Eos % (Auto) 0.6, Baso % (Auto) 0.2, Neut # (Auto) 4.7, Lymph # (Auto) 0.5 L, Isabella # (Auto) 0.0 L, Eos # (Auto) 0.0, Baso # (Auto) 0.0, Sodium 131 L, Potassium 5.4 H, Chloride 102, Carbon Dioxide 25, Anion Gap 9.4, BUN 31 H, Creatinine 1.20, Estimated Creat Clear 67, Estimated GFR 61, Est GFR ( Amer) 74, Glucose 163 H, Calcium 10.5 H, HCV Ab ALEXANDRE w/Rflx PCR Qn Negative, HIV Ag/Ab Combo Qual Negative 02/05/25 15:30 02/05/25 15:30 Orders (Tests/Meds): ED MEDICATIONS Generic Name Dose Route Start Last Admin Trade Name Freq PRN Reason Stop Dose Admin Sodium Chloride 10 ml 02/05/25 16:58 02/05/25 16:59 Sodium Chloride 0.9% 10ml Syr (Rad Only) IV 03/07/25 16:57 10 ml NEEDED PRN Administration Maintain IV Site Discontinued Medications Generic Name Dose Route Start Last Admin Trade Name Freq PRN Reason Stop Dose Admin Ceftriaxone Sodium 1 gm/ 50 mls @ 100 mls/hr 02/05/25 17:04 02/05/25 17:29 Sodium Chloride IV 02/05/25 17:33 Not Given ONCE ONE Iopamidol 75 ml 02/05/25 16:58 02/05/25 16:59 Iopamidol-370 (76%);100ml Bottle IV 02/05/25 16:59 75 ml ONCE ONE Administration ORDERS Category Date Time Status CT abdomen pelvis w con Stat Cat Scan 02/05/25 14:35 Completed BMP [Basic Metabolic Panel] Stat Lab 02/05/25 15:30 Completed CBC w/Auto Diff [Complete Blood Count Auto Diff] Stat Lab 02/05/25 15:30 Results HIV Combo Stat Lab 02/05/25 15:30 Completed Hepatitis C Ab Qual. W/ RFX Stat Lab 02/05/25 15:30 Completed UA [Urinalysis and Microscopic] Stat Lab 02/05/25 15:14 Completed Urine Culture Stat Micro 02/05/25 15:14 Received Medical Decision Narrative: In summary, this is a 64-year-old male presenting with nephrostomy complication. Differential diagnosis includes but is not limited to, nephrostomy displacement, nephrostomy clogged, increased cancer burden, among others. Patient is very well-appearing on exam and has no signs or symptoms of systemic infection. Patient able to perform self cath and unable to flush nephrostomy to reinitiate drainage. Patient will be evaluated with CBC, BMP and CT of his abdomen/pelvis with contrast to further evaluate appropriate placement of right sided nephrostomy tube. At this time, patient was signed out to oncoming provider, Dr. Thompson pending labs and CT scan results. <Yang Thompson MD - Last Filed: 02/05/25 18:27> Vital Signs: 02/05/25 14:30 02/05/25 14:38 02/05/25 15:32 Temperature 98.2 F Temperature Source Oral Pulse Rate 89 Pulse Rate [Right Radial] 102 H Respiratory Rate 18 Blood Pressure 147/84 H 137/80 Blood Pressure [Right Arm] 132/83 Blood Pressure Mean 98 Blood Pressure Mean [Right Arm] 99 Blood Pressure Source [Right Arm] Automatic Cuff Blood Pressure Position [Right Arm] Sitting 02 Sat by Pulse Oximetry 98 97 98 Oxygen Delivery Method Room Air Room Air 02/05/25 16:00 02/05/25 16:14 02/05/25 16:30 Temperature Temperature Source Pulse Rate 99 H 98 H 101 H Pulse Rate [Right Radial] Respiratory Rate Blood Pressure 153/82 H 152/76 H 159/82 H Blood Pressure [Right Arm] Blood Pressure Mean Blood Pressure Mean [Right Arm] Blood Pressure Source [Right Arm] Blood Pressure Position [Right Arm] 02 Sat by Pulse Oximetry 97 97 98 Oxygen Delivery Method Room Air Room Air Room Air 02/05/25 17:21 02/05/25 17:30 02/05/25 18:00 Temperature Temperature Source Pulse Rate 104 H 105 H 101 H Pulse Rate [Right Radial] Respiratory Rate Blood Pressure 163/88 H 164/89 H 163/85 H Blood Pressure [Right Arm] Blood Pressure Mean Blood Pressure Mean [Right Arm] Blood Pressure Source [Right Arm] Blood Pressure Position [Right Arm] 02 Sat by Pulse Oximetry 98 98 97 Oxygen Delivery Method Room Air Room Air Room Air Lab Data Lab Results 02/05/25 15:14: Urine Color Yellow, Urine Appearance Clear, Urine pH 7.0, Ur Specific [place] 1.015, Urine Protein 3+ A, Urine Glucose (UA) Negative, Urine Ketones Negative, Urine Blood 2+ A, Urine Nitrate Positive A, Urine Bilirubin Negative, Urine Urobilinogen 0.2, Ur Leukocyte Esterase 2+ A, Urine RBC 3-5, Urine WBC 50-100, Ur Squamous Epith Cells Occasional, Urine Bacteria 3+ 02/05/25 15:30: WBC 5.3, RBC 3.37 L, Hgb 8.6 L, Hct 27.7 L, MCV 82.2, MCH 25.5 L , MCHC 31.0 L, RDW 17.6 H, Plt Count 142, MPV 9.7, Neut % (Auto) 88.0 H, Lymph % (Auto) 10.2, Isabella % (Auto) 0.4 L, Eos % (Auto) 0.6, Baso % (Auto) 0.2, Neut # (Auto) 4.7, Lymph # (Auto) 0.5 L, Isabella # (Auto) 0.0 L, Eos # (Auto) 0.0, Baso # (Auto) 0.0, Sodium 131 L, Potassium 5.4 H, Chloride 102, Carbon Dioxide 25, Anion Gap 9.4, BUN 31 H, Creatinine 1.20, Estimated Creat Clear 67, Estimated GFR 61, Est GFR ( Amer) 74, Glucose 163 H, Calcium 10.5 H, HCV Ab ALEXANDRE w/Rflx PCR Qn Negative, HIV Ag/Ab Combo Qual Negative Orders (Tests/Meds): ED MEDICATIONS Generic Name Dose Route Start Last Admin Trade Name Freq PRN Reason Stop Dose Admin Sodium Chloride 10 ml 02/05/25 16:58 02/05/25 16:59 Sodium Chloride 0.9% 10ml Syr (Rad Only) IV 03/07/25 16:57 10 ml NEEDED PRN Administration Maintain IV Site Discontinued Medications Generic Name Dose Route Start Last Admin Trade Name Joseq PRN Reason Stop Dose Admin Ceftriaxone Sodium 1 gm/ 50 mls @ 100 mls/hr 02/05/25 17:04 02/05/25 17:29 Sodium Chloride IV 02/05/25 17:33 Not Given ONCE ONE Iopamidol 75 ml 02/05/25 16:58 02/05/25 16:59 Iopamidol-370 (76%);100ml Bottle IV 02/05/25 16:59 75 ml ONCE ONE Administration ORDERS Category Date Time Status CT abdomen pelvis w con Stat Cat Scan 02/05/25 14:35 Completed BMP [Basic Metabolic Panel] Stat Lab 02/05/25 15:30 Completed CBC w/Auto Diff [Complete Blood Count Auto Diff] Stat Lab 02/05/25 15:30 Results HIV Combo Stat Lab 02/05/25 15:30 Completed Hepatitis C Ab Qual. W/ RFX Stat Lab 02/05/25 15:30 Completed UA [Urinalysis and Microscopic] Stat Lab 02/05/25 15:14 Completed Urine Culture Stat Micro 02/05/25 15:14 Received Medical Decision Narrative: In summary, this is a 64-year-old male presenting with nephrostomy complication. Differential diagnosis includes but is not limited to, nephrostomy displacement, nephrostomy clogged, increased cancer burden, among others. Patient is very well-appearing on exam and has no signs or symptoms of systemic infection. Patient able to perform self cath and unable to flush nephrostomy to reinitiate drainage. Patient will be evaluated with CBC, BMP and CT of his abdomen/pelvis with contrast to further evaluate appropriate placement of right sided nephrostomy tube. At this time, patient was signed out to oncoming provider, Dr. Thompson pending labs and CT scan results. Jay: I assumed primary responsibility for this patient after signout from previous physician. Patient states he recently had right nephrostomy tube placed due to obstructive uropathy secondary to urothelial cancer. Able to self cath for drainage of the left kidney and bladder. States that he last had drainage from his right nephrostomy tube today, 02/05 around 7 AM, has not had any drainage since and states that he is having significant pain and pressure in his right flank. No fevers or chills, nausea or vomiting. Came in for further evaluation. On arrival, very clinically well, but chronically ill. Patient has nephrostomy tube in place, no evidence of infection at the site of insertion, but drain stitch is 4 to 5 cm removed from the skin concerning for displacement. Independent interpretation of workup with nonactionable CBC or chemistry. BUN 31, creatinine 1.2. Patient's urinalysis with blood, protein, nitrates, leukocyte esterase, bacteria, white cells consistent with urinary tract infection, catheter associated. Offered ceftriaxone, patient declining. I contacted [facility] and discussed with urology. They recommended trying to flush. I attempted to flush the line, it did not appear to be any back pressure from the flush port to the nephrostomy tube. Artificially clamped nephrostomy tube and flushed the [place] bag tubing. Difficult to flush at first, broke sediment loose and freely draining after that. Drained approximately 150 cc out of red urine. Patient with immediate relief. Given this, transfer to [facility] was canceled and patient deemed appropriate for outpatient management. Declining antibiotics again, recommended he follow-up with [facility] regarding medical management of urinary tract infection. He voiced his understanding. Because patient at baseline without signs or symptoms of clinical decompensation, deemed appropriate for discharge. Results were relayed to patient who voiced understanding and were agreeable to outpatient management and follow up. I discussed my clinical impression with patient and answered all questions. At this time, the evidence for any other entities in the differential is insufficient to warrant any further testing or ED observation. This was explained as well. Advisory was given that persistent or worsening symptoms require further evaluation. I confirmed the understanding of this discussion. Critical Care <Trina Stafford MD - Last Filed: 02/05/25 15:38> Critical Care Time Critical Care Time: No
[2025-02-05 15:43] LABS: Basophils % 0.2 % (0.1-2.0); Eosinophils % 0.6 % (0.1-12.0); Hematocrit 27.7 % (42.0-52.0); Hemoglobin 8.6 g/dL (14.1-18.0); Immature Granulocytes # 0.03 10^3uL; Immature Granulocytes % 0.6 %; Lymphocytes # 0.5 K/mm3 (0.7-4.5); Lymphocytes % 10.2 % (10-50); Mean Corpuscular Hemoglobin 25.5 pg (27.0-31.2); Mean Corpuscular Volume 82.2 fl (80-94); Mean Platelet Volume 9.7 fl (7.4-10.4); Monocytes % 0.4 % (1.7-9.3); Neutrophils # 4.7 K/mm3 (1.8-7.8); Nucleated Red Blood Cells # 0 10^3/uL; Nucleated Red Blood Cells % 0 %; Platelet Count 142 K/mm3 (142-424); Red Blood Count 3.37 M/mm3 (4.60-6.20); Red Cell Distribution Width 17.6 % (11.5-17.5); Red Cell Distribution Width-SD 51.9 fL; White Blood Count 5.3 K/mm3 (4.8-10.8)
[2025-02-05 16:10] LABS: MANUAL DIFFERENTIAL MANUAL DIFFERENTIAL (MANUAL DIFF)
[2025-02-05 16:44] LABS: Microscopic, Urine URINE MICROSCOPIC (MICROSCOPIC)
[2025-02-05 16:46] LABS: Anion Gap 9.4 mEq/L (5-15); Blood Urea Nitrogen 31 mg/dl (9-20); Calcium 10.5 mg/dl (8.4-10.2); Carbon Dioxide 25 mmol/L (22.0-30.0); Chloride 102 mmol/L (98-107); Creatinine Clearance Estimated 67 mL/min (50-200); Estimated Glomerular Filt Rate 61 ml/min (>60); GFR (African American) 74 ML/MIN (>60); Glucose 163 mg/dl (74-100); Potassium 5.4 mmoL/L (3.5-5.1); Sodium 131 mmol/L (136-145)
--- NOTE | 2025-02-05 16:48 | PC.NURSE ---
contacted lab to check on status of lab results-states releasing results at this time
[2025-02-05 16:52] LABS: Appearance,Urine CLEAR (Clear); Bilirubin,Urine Negative (Negative); Blood, Urine 2+ (Negative); Color,Urine YELLOW (Yellow); Glucose,Urine (UA) Negative (Negative); Ketones,Urine Negative (Negative); Leukocyte Esterase,Urine 2+ (Negative); Nitrate,Urine POSITIVE (Negative); Protein,Urine 3+ (Negative); Specific Gravity, Urine 1.015 (1.005-1.030); Urobilinogen,Urine 0.2 EU/dl (0.2)
--- NOTE | 2025-02-05 16:52 | PC.NURSE ---
pt to ct via [facility] at this time
--- NOTE | 2025-02-05 16:53 | PC.NURSE ---
PT GOING TO CT VIA WHEELCHAIR
[2025-02-05] MEDS: SODIUM CHLORIDE 0.9% 10ML SYR (RAD ONLY) 10 ML IV (16:59)
[2025-02-05] MEDS: IOPAMIDOL-370 (76%);100ML BOTTLE 75 ML IV (16:59)
[2025-02-05 17:00] LABS: Squamous Epithelial Cell,Urine Occasional #/hpf (0-5); WBC,Urine 50-100 #/hpf (0-3)
[2025-02-05 17:02] LABS: Bacteria,Urine 3+ /lpf
--- NOTE | 2025-02-05 17:02 | PC.NURSE ---
PT ARRIVED BACK TO ROOM FROM CT
--- NOTE | 2025-02-05 17:04 | PC.NURSE ---
CALLED RADIOLOGY TO POWER SHARE IMAGES TO [facility] AND BURN A DISC
[2025-02-05 17:11] LABS: HIV Combo NEGATIVE (Negative)
[2025-02-05 17:19] LABS: Hepatitis C Ab Qual. W/ RFX NEGATIVE (Negative)
--- NOTE | 2025-02-05 17:52 | PC.NURSE ---
CALLED [facility] FOR POSSIBLE TRANSFER TO FOR DISFUNCTIONING RT NEPHROSTOMY TUBE MAY NEED INTERVENTIONAL RADIOLOGY PER REQUEST , STATES THEY WILL CALL BACK
--- NOTE | 2025-02-05 17:58 | PC.NURSE ---
SPEAKING WITH FROM [facility]
--- NOTE | 2025-02-05 18:24 | PC.NURSE ---
CALLED [facility] TO LET THEM KNOW PT IS NOW GOING HOME
[2025-02-05 19:33] LABS: Total Cells Counted 100
[2025-02-05 19:34] LABS: Lymphocytes % 8 % (10-50); Neutrophils % 92 % (42-76); Platelet Estimate Normal; Rouleaux 1+
[2025-02-05 19:35] LABS: Microcytosis 1+
--- NOTE | 2025-02-06 17:00 | PC.NURSE ---
I spoke with about pts urine culture results. Pt refused antibiotics during his stay and is following up with his urologist.
== END 2025-02-05 18:35 | disposition home or self-care (01) ==
PROVIDERS: Student in an Organized Health Care Education/Training Program; Emergency Provider Emergency Medicine
DX: T83.092A Other mechanical complication of nephrostomy catheter, initial encounter (principal); Z85.51 Personal history of malignant neoplasm of bladder; Z11.59 Encounter for screening for other viral diseases; Z11.4 Encounter for screening for human immunodeficiency virus [HIV]
CPT/HCPCS: 74177; 80048; 81001; 85007; 85025; 85027; 86803; 87086; 87088; 87186; 87389; 99284; J0696; Q9967